=== PATIENT | female | born 1970 | race Two or more races ===

== ENCOUNTER 2017-07-12 18:30 | Inpatient (IN) | payer MEDICAID ==
[~2017-07-12] VITALS: Ht 167.6 cm; Wt 65.8 kg
--- NOTE | 2017-07-12 19:25 | NUR ---
TO BED 8 A 46 YO FEMALE BIBSELF AND REPORTS OF "FEVER X3 DAYS; TODAY I STARTED HAVING ABD CRAMPING AND NAUSEA." UPON ARRIVAL TO ER, PATIENT IS AAOX3, NO ACUTE DISTRESS NOTED. AFEBRILE. VSS. INITIATED COMFORT MEASURES. ONGOING VS MONITORING. AWAITING FOR ER MD GARCIA.
--- NOTE | 2017-07-12 19:27 | NUR ---
DR REDDY AT BEDSIDE TO EVAL.
[2017-07-12] MEDS ORDERED: ONDANSETRON HCL/PF 4 MG/2 ML VIAL IVP ONE (19:30)
[2017-07-12] MEDS ORDERED: IV NS 0.9% 1,000 ML BAG IV ONE ×2 (19:30→20:30)
[2017-07-12] MEDS ORDERED: MORPHINE SULFATE INJ 2 MG/ML DISP.SYRIN IV ONE (19:30)
--- NOTE | 2017-07-12 19:40 | NUR ---
STARTED A SALINE LOCK ON THE RIGHT AC G20, BLOOD DRAWN AND SENT TO LAB.
[2017-07-12] MEDS ORDERED: ONDANSETRON HCL/PF 4 MG/2 ML VIAL ONE (19:41)
[2017-07-12] MEDS ORDERED: MORPHINE SULFATE INJ 2 MG/ML DISP.SYRIN ONE (19:41)
[2017-07-12 19:42] LABS: BASOPHILS # (AUTO) 0.3 /CMM (0.0-0.2); BASOPHILS % (AUTO) 1.2 % (0.0-2.0); EOSINOPHILS % (AUTO) 0.1 % (0.0-6.0); HEMATOCRIT 41 % (33-45); HEMOGLOBIN 14.1 g/dL (11.5-14.8); LYMPHOCYTES # (AUTO) 1.4 /CMM (0.8-4.8); LYMPHOCYTES % (AUTO) 5.9 % (20.0-44.0); MEAN CORPUSCULAR HEMOGLOBIN 30 PG (26.0-33.0); MEAN CORPUSCULAR HGB CONC 35 g/dl (31.0-36.0); MEAN CORPUSCULAR VOLUME 87 fL (82-100); MONOCYTES # (AUTO) 1.9 /CMM (0.1-1.30); MONOCYTES % (AUTO) 7.7 % (2.0-12.0); NEUTROPHILS # (AUTO) 20.8 /CMM (1.8-8.9); NEUTROPHILS % (AUTO) 85.1 % (43.0-81.0); PLATELET COUNT (AUTO) 242 /CMM (150-450); RDW COEFFICIENT OF VARIATION 12.4 (11.5-15.0); RED BLOOD CELL COUNT(AUTO) 4.68 MIL/uL (4.0-5.2); WHITE BLOOD COUNT (AUTO) 24.4 K/uL (4.3-11.0)
[2017-07-12 19:46] LABS: APPEARANCE,URINE Slightly Cloudy (CLEAR); BILIRUBIN,URINE SMALL (NEGATIVE); BLOOD, URINE Moderate Ery/uL (NEGATIVE); COLOR,URINE Dark (YELLOW); KETONES,URINE >=160 (NEGATIVE); LEUKOCYTE ESTERASE ,URINE Negative (NEGATIVE); NITRITE, URINE Negative (NEGATIVE); PH,URINE 5.5 (5.0-8.0); PROTEIN,URINE 100 mg/dl (NEGATIVE); UGLUCOSE Negative (NEGATIVE); UROBILINOGEN,URINE 0.2 EU/dL (0.2)
--- NOTE | 2017-07-12 19:48 | NUR ---
MEDICATED PATIENT ORDERED BY DR REDDY.
[2017-07-12 19:49] LABS: PREGNANCY TEST URINE QUAL NEGATIVE (NEGATIVE)
[2017-07-12 20:02] LABS: CALCIUM, SERUM 9.2 mg/dL (8.5-10.1); CREATININE 0.6 mg/dL (0.6-1.3); POTASSIUM 3.6 mmol/L (3.5-5.1); RBC,URINE 21-50 /HPF (0-2)
[2017-07-12 20:03] LABS: BACTERIA,URINE Few /HPF (None Seen); SQUAMOUS EPITHELIAL CELL,UR Few /HPF (None Seen)
[2017-07-12 20:08] LABS: ALBUMIN 2.9 g/dL (3.4-5.0); BILIRUBIN,DIRECT 0.2 mg/dL (0.0-0.2); TOTAL PROTEIN, SERUM 7.7 g/dL (6.4-8.2)
[2017-07-12 20:29] LABS: LYMPHOCYTES % (MANUAL) 14 % (16-48); MONOCYTES % (MANUAL) 6 % (0-11.0); NEUTROPHILS % (MANUAL) 80 (42-76)
[2017-07-12] MEDS ORDERED: PIPERACILLIN /TAZOBACTAM 3.375 G in IV D5W 50 ML IV ONE (21:30)
--- NOTE | 2017-07-12 21:31 | NUR ---
PATIENT WILL BE ADMITTED INTO [facility].
[2017-07-12] MEDS ORDERED: PIPERACILLIN /TAZOBACTAM 3.375 G VIAL IV ONE (21:36)
--- NOTE | 2017-07-12 21:50 | NUR ---
Report given to Kristy GUERIN for medsurg admission and dina.
[2017-07-12 22:00] VITALS: BP 116/72
[2017-07-12] MEDS ORDERED: ACETAMINOPHEN 325 MG TABLET PO PRN (22:00)
[2017-07-12] MEDS ORDERED: MAGNESIUM HYDROXIDE 30 ML UDC PO PRN (22:00)
[2017-07-12] MEDS ORDERED: MAG HYDROX/AL HYDROX/SIMETH 30 ML UDC PO PRN (22:00)
[2017-07-12] MEDS ORDERED: Z GUARD REMEDY 2 OZ OINT TP PRN (22:00)
--- NOTE | 2017-07-12 22:00 | NUR ---
Transferred to [facility] floor for admission and dina.
[2017-07-12] MEDS ORDERED: HYDROCODONE/APAP 10/325MG 1 EA TABLET ONE (22:33)
[2017-07-12] MEDS: HYDROCODONE/APAP 10/325MG 1 EA TABLET PO PRN (22:34)
--- NOTE | 2017-07-12 22:35 | NUR ---
RN NOTE; ADMITTED A 46Y/O, F, A, OX4. BREATHING EVENLY. NO SOB. [facility] . SKIN WARM AND DRY. VITAL SIGNS OBTAINED ALL WNL. AFEBRILE. W/ C/O LOWER ABD PAIN. NORCO 10 GIVEN ORDERED. IV SITE CLEAN AND PATENT. NO SKIN BREAK DOWN NOTED. NEEDS ATTENDED. CALL LIGHT GIVEN TO THE PT. BED LOW LOCKED. WILL CONT TO MONITOR AND WILL F/U W/ MD'S ORDER.
[2017-07-12] MEDS: IV NS 0.9% 1,000 ML IV PRN (22:38)
--- NOTE | 2017-07-13 00:04 | NUR ---
HELD MIDNIGHT DOSE OF ZOSYN SINCE PT HAS RECEIVED HER LAST DOSE OF ZOSYN AROUND 2144 AT THE ER.
[2017-07-13] MEDS ORDERED: TEMAZEPAM 15 MG CAPSULE ONE (01:37)
[2017-07-13] MEDS: TEMAZEPAM 15 MG CAPSULE PO PRN (01:38)
--- NOTE | 2017-07-13 01:40 | NUR ---
RESTORIL 15MG GIVEN ORDERED PER PT'S REQUEST FOR C/O INSOMNIA. WILL CONT TO MONITOR
[2017-07-13] MEDS ORDERED: PIPERACILLIN /TAZOBACTAM 3.375 G VIAL IV ONE (05:03)
[2017-07-13] MEDS ORDERED: ONDANSETRON HCL/PF 4 MG/2 ML VIAL ONE (05:34)
[2017-07-13] MEDS: PIPERACILLIN /TAZOBACTAM 3.375 G in IV D5W 50 ML IV SCH ×5 (05:36→17:17)
[2017-07-13] MEDS: ONDANSETRON HCL/PF 4 MG/2 ML VIAL IVP PRN ×3 (05:37→19:22)
--- NOTE | 2017-07-13 05:37 | NUR ---
ZOFRAN GIVEN ORDERED FOR C/O NAUSEA WILL CONT TO MONITOR
[2017-07-13] MEDS: IV NS 0.9% 1,000 ML IV PRN (05:40)
[2017-07-13] MEDS ORDERED: HYDROCODONE/APAP 10/325MG 1 EA TABLET ONE (05:57)
[2017-07-13] MEDS: HYDROCODONE/APAP 10/325MG 1 EA TABLET PO PRN ×2 (05:59→13:05)
--- NOTE | 2017-07-13 06:00 | NUR ---
NORCO 10 GIVEN ORDERED FOR C/O SEVERE LOWER ABD PAIN . WILL CONT TO MONITOR
--- NOTE | 2017-07-13 06:37 | NUR ---
PT IN BED AWAKE AND ALERT. BREATHING EVENLY. NO ACUTE EVENT DURING THE NIGHT. MEDICATED ORDERED. ON ONGOING IVF HYDRATION AND IV ABX. PAIN MEDICATION GIVEN ORDERED PER PT'S REQUEST EFFECTIVE. NEEDS ATTENDED . CALL LIGHT WITHIN REACH. WILL CONT TO MONITOR AND WILL ENDORSE TO AM SHIFT FOR TOBIAS.
[2017-07-13 07:32] LABS: BASOPHILS % (AUTO) 0.1 % (0.0-2.0); EOSINOPHILS % (AUTO) 0.1 % (0.0-6.0); HEMATOCRIT 35 % (33-45); LYMPHOCYTES # (AUTO) 1.8 /CMM (0.8-4.8); MEAN CORPUSCULAR HEMOGLOBIN 30 PG (26.0-33.0); MEAN CORPUSCULAR HGB CONC 35 g/dl (31.0-36.0); MEAN CORPUSCULAR VOLUME 87 fL (82-100); MONOCYTES # (AUTO) 0.7 /CMM (0.1-1.30); MONOCYTES % (AUTO) 3.6 % (2.0-12.0); NEUTROPHILS # (AUTO) 17.4 /CMM (1.8-8.9); NEUTROPHILS % (AUTO) 87.2 % (43.0-81.0); PLATELET COUNT (AUTO) 207 /CMM (150-450); RDW COEFFICIENT OF VARIATION 13.7 (11.5-15.0); RED BLOOD CELL COUNT(AUTO) 3.94 MIL/uL (4.0-5.2); WHITE BLOOD COUNT (AUTO) 19.9 K/uL (4.3-11.0)
--- NOTE | 2017-07-13 07:37 | NUR ---
RN NOTES RECEIVED PATIENT IN BED, AWAKE, HOB ELEVATED, NO SOB OR DISTRESS NOTED. A/O X 4, VERBALLY RESPONSIVE AND ABLE TO MAKE NEEDS KNOWN. IV INTACT AND PATENT. KEPT PATIENT CLEAN AND COMFORTABLE IN BED, CALL LIGHT WITHIN PATIENT REACH, WILL CONTINUE TO MONITOR ACCORDINGLY.
[2017-07-13 07:40] LABS: CALCIUM, SERUM 7.9 mg/dL (8.5-10.1); CARBON DIOXIDE 24 mmol/L (21-32); CHLORIDE 103 mmol/L (98-107); CREATININE 0.6 mg/dL (0.6-1.3); GLUCOSE 96 mg/dL (74-106); MAGNESIUM 1.6 mg/dL (1.8-2.4); PHOSPHORUS 2.7 mg/dL (2.5-4.9); POTASSIUM 3.1 mmol/L (3.5-5.1); SODIUM SERUM 137 mmol/L (136-145); UREA NITROGEN, BLOOD 7 mg/dL (7-18)
[2017-07-13 07:50] LABS: CHOLESTEROL 103 mg/dL (<200); LDL 52 mg/dL (0-99); TRIGLYCERIDES 125 mg/dL (30-150)
[2017-07-13 08:00] VITALS: BP 93/56
[2017-07-13] MEDS ORDERED: ACET325T53 PO (08:11)
[2017-07-13] MEDS: PANTOPRAZOLE 40 MG TABLET.DR PO SCH (08:28)
[2017-07-13 09:06] LABS: HDL CHOLESTEROL < 10 mg/dL (40-60)
[2017-07-13] MEDS: POTASSIUM CHLORIDE 20 MEQ TAB.PRT.SR PO SCH ×2 (11:22→13:05)
[2017-07-13] MEDS: Magnesium 1GM/D5W 100ML PREMIX 100 ML IV SCH ×2 (13:04→14:24)
--- NOTE | 2017-07-13 13:05 | NUR ---
RN NOTES PT REPORTED NAUSEA AND PAIN 07/07. NORCO 10/325 AND ZOFRAN GIVEN.
[2017-07-13] MEDS ORDERED: POTASSIUM CHLORIDE 20 MEQ TAB.PRT.SR PO ONE (14:00)
[2017-07-13] MEDS ORDERED: Magnesium 1GM/D5W 100ML PREMIX 100 ML IV SCH (14:00)
[2017-07-13 16:00] VITALS: BP 101/56
--- NOTE | 2017-07-13 18:31 | NUR ---
RN NOTES ALL NEEDS PROVIDED, ATTENDED, AND ANTICIPATED. KEPT PATIENT CLEAN AND COMFORTABLE IN BED, CALL LIGHT WITHIN PATIENT REACH, WILL CONTINUE TO MONITOR ACCORDINGLY. ENDORSED TO NEXT SHIFT RN TO CONTINUE CARE.
[2017-07-13] MEDS: HYDROCODONE/APAP 5/325MG 1 EACH TABLET PO PRN (19:22)
--- NOTE | 2017-07-13 19:30 | NUR ---
RN NOTES RECEIVED PATIENT IN BED, AWAKE, A/O X 4, VERBALLY RESPONSIVE AND ABLE TO MAKE NEEDS KNOWN. NO SOB OR DISTRESS NOTED. IV SITE ON RAC INTACT AND PATENT. NO S/S OF INFILTRATION NOTED. IVF INFUSING WELL. NO C/O PAIN OR DISCOMFORT AT THIS TIME. KEPT PATIENT COMFORTABLE IN BED, CALL LIGHT WITHIN PATIENT REACH, SAFETY PRECAUTIONS OBSERVED. WILL CONTINUE TO MONITOR ACCORDINGLY.
[2017-07-13 20:00] VITALS: BP_SYST 113; BP_SYST 116; BP_DIAS 61; BP_DIAS 71
[2017-07-13 23:28] VITALS: BP 113/61
[2017-07-14] MEDS: PIPERACILLIN /TAZOBACTAM 3.375 G in IV D5W 50 ML IV SCH ×4 (00:15→18:17)
[2017-07-14] MEDS: IV NS 0.9% 1,000 ML IV PRN ×2 (00:24→14:34)
[2017-07-14] MEDS: ONDANSETRON HCL/PF 4 MG/2 ML VIAL IVP PRN (03:33)
[2017-07-14] MEDS: HYDROCODONE/APAP 5/325MG 1 EACH TABLET PO PRN ×4 (03:43→20:30)
[2017-07-14 04:00] VITALS: BP 112/75
[2017-07-14 06:59] LABS: BASOPHILS % (AUTO) 0.2 % (0.0-2.0); EOSINOPHILS # (AUTO) 0.1 /CMM (0.0-0.7); EOSINOPHILS % (AUTO) 0.5 % (0.0-6.0); HEMATOCRIT 35 % (33-45); HEMOGLOBIN 11.8 g/dL (11.5-14.8); LYMPHOCYTES # (AUTO) 2.1 /CMM (0.8-4.8); MEAN CORPUSCULAR HEMOGLOBIN 30 PG (26.0-33.0); MEAN CORPUSCULAR HGB CONC 34 g/dl (31.0-36.0); MEAN CORPUSCULAR VOLUME 88 fL (82-100); MONOCYTES % (AUTO) 7.4 % (2.0-12.0); NEUTROPHILS % (AUTO) 75.9 % (43.0-81.0); PLATELET COUNT (AUTO) 214 /CMM (150-450); RDW COEFFICIENT OF VARIATION 13.6 (11.5-15.0); WHITE BLOOD COUNT (AUTO) 13.2 K/uL (4.3-11.0)
--- NOTE | 2017-07-14 07:00 | NUR ---
RN NOTES ALL NEEDS ATTENDED AND MET.
--- NOTE | 2017-07-14 07:06 | NUR ---
RN NOTES PATIENT IN BED, AWAKE, A/O X 4, VERBALLY RESPONSIVE AND ABLE TO MAKE NEEDS KNOWN. RESTING COMFORTABLY AT THIS TIME. NO SOB OR DISTRESS NOTED. IV SITE ON RAC INTACT AND PATENT. NO S/S OF INFILTRATION NOTED. IVF INFUSING WELL. NO C/O PAIN OR DISCOMFORT AT THIS TIME. KEPT PATIENT COMFORTABLE IN BED, CALL LIGHT WITHIN PATIENT REACH, SAFETY PRECAUTIONS OBSERVED. WILL ENDORSE TO NEXT SHIFT ACCORDINGLY.
[2017-07-14 08:00] VITALS: BP 119/73
--- NOTE | 2017-07-14 08:00 | NUR ---
AM RN NOTES RECEIVED PT IN STABLE CONDITION, RESTING IN BED, NO N/V NOTED, NO PAIN AT THIS TIME, PROVIDED WITH BREAKFAST WILL MONITOR.
[2017-07-14] MEDS: PANTOPRAZOLE 40 MG TABLET.DR PO SCH (08:11)
[2017-07-14 08:30] LABS: MAGNESIUM 1.9 mg/dL (1.8-2.4); PHOSPHORUS 3.3 mg/dL (2.5-4.9)
[2017-07-14] MEDS ORDERED: MAG HYDROX/AL HYDROX/SIMETH 30 ML UDC PO PRN (12:00)
[2017-07-14] MEDS ORDERED: SUMATRIPTAN SUCCINATE 25 MG TABLET PO ONE (12:00)
[2017-07-14] MEDS ORDERED: POTASSIUM CHLORIDE 20 MEQ TAB.PRT.SR PO ONE (12:27)
--- NOTE | 2017-07-14 12:57 | NUR ---
RN NOTES PER DR. KRAMER, OKAY TO ADMINISTER POTASSIUM 40 MEQ WITHOUT LABS TODAY DUE TO PREVIOUS LOW POTASSIUM LEVEL. PT. HAS BMP ORDERED TOMORROW ON0 07/15/17.
[2017-07-14 16:00] VITALS: BP 119/73
[2017-07-14 16:16] VITALS: BP 135/76
--- NOTE | 2017-07-14 18:59 | NUR ---
PT IN STABLE CONDITION, NO N/V NOTED, PAIN WELL CONTROLLED WITH MEDICATION, WILL INDORSE TO NEXT SHIFT FOR TOBIAS.
[2017-07-14 20:00] VITALS: BP 115/60
[2017-07-14] MEDS: TEMAZEPAM 15 MG CAPSULE PO PRN (20:29)
[2017-07-15] MEDS: PIPERACILLIN /TAZOBACTAM 3.375 G in IV D5W 50 ML IV SCH ×3 (00:01→12:04)
[2017-07-15] MEDS: IV NS 0.9% 1,000 ML IV PRN (00:05)
[2017-07-15 04:00] VITALS: BP 139/83
[2017-07-15] MEDS: ONDANSETRON HCL/PF 4 MG/2 ML VIAL IVP PRN (05:26)
[2017-07-15] MEDS: HYDROCODONE/APAP 5/325MG 1 EACH TABLET PO PRN (05:27)
[2017-07-15 07:12] LABS: BASOPHILS % (AUTO) 0.3 % (0.0-2.0); EOSINOPHILS # (AUTO) 0.1 /CMM (0.0-0.7); EOSINOPHILS % (AUTO) 0.5 % (0.0-6.0); HEMATOCRIT 34 % (33-45); HEMOGLOBIN 11.5 g/dL (11.5-14.8); LYMPHOCYTES % (AUTO) 16.7 % (20.0-44.0); MEAN CORPUSCULAR HEMOGLOBIN 30 PG (26.0-33.0); MEAN CORPUSCULAR HGB CONC 34 g/dl (31.0-36.0); MEAN CORPUSCULAR VOLUME 88 fL (82-100); MONOCYTES # (AUTO) 0.7 /CMM (0.1-1.30); MONOCYTES % (AUTO) 6.1 % (2.0-12.0); NEUTROPHILS # (AUTO) 9.1 /CMM (1.8-8.9); NEUTROPHILS % (AUTO) 76.4 % (43.0-81.0); PLATELET COUNT (AUTO) 220 /CMM (150-450); RDW COEFFICIENT OF VARIATION 13.3 (11.5-15.0); RED BLOOD CELL COUNT(AUTO) 3.84 MIL/uL (4.0-5.2); WHITE BLOOD COUNT (AUTO) 11.9 K/uL (4.3-11.0)
--- NOTE | 2017-07-15 07:30 | NUR ---
MS RN NOTE: RECEIVED PT AWAKE IN BED, A&OX4. ON RA, RESPIRATIONS EVEN AND UNLABORED WITH NO SOB NOTED. DENIES PAIN. NO SOB OR DISTRESS NOTED. IV SITE ON LH INTACT AND PATENT WITH NS RUNNING AT 100CC/HR. BED LOW, LOCKED WITH CALL LIGHT WITHIN REACH. ALL NEEDS MET AN ANTICIPATED. WILL CONT TO MONITOR.
[2017-07-15 07:47] LABS: CALCIUM, SERUM 8.2 mg/dL (8.5-10.1); CREATININE 0.6 mg/dL (0.6-1.3); POTASSIUM 3.6 mmol/L (3.5-5.1)
[2017-07-15] MEDS: PANTOPRAZOLE 40 MG TABLET.DR PO SCH (07:58)
[2017-07-15 08:00] VITALS: BP_SYST 105; BP_SYST 108; BP_DIAS 61
[2017-07-15 08:37] LABS: MAGNESIUM 1.8 mg/dL (1.8-2.4); PHOSPHORUS 3.5 mg/dL (2.5-4.9)
[2017-07-15] MEDS ORDERED: SULF1TAB48 PO (11:44)
[2017-07-15] MEDS ORDERED: SUMA20SP NS (11:44)
--- NOTE | 2017-07-15 13:45 | NUR ---
MS RN NOTE: PATIENT D/C BACK HOME TODAY IN STABLE CONDITION. VS: 97/8 TEMP, 84 HR, 20 RR, 97%O2 SAT, 105/61 BP. FOLLOW UP CARE INSTRUCTIONS AND S/S OF WHEN TO SEEK MEDICAL ATTENTION REVIEWED WITH PATIENT. BELONGINGS LIST AND D/C FORMS SIGNED. PATIENT LEFT THE UNIT AMBULATORY ACCOMPANIED BY HER SON AT 1345.
[2017-07-16] MEDS ORDERED: OMEP40CA37 PO (01:18)
== END 2017-07-15 14:08 | disposition home or self-care (01) | DRG 720 ==
LOC: ER 18:32 → MEDSG1 22:28
PROVIDERS: ADMIT Nurse Practitioner Acute Care; ATTEND Nurse Practitioner Acute Care
DX: A41.9 Sepsis, unspecified organism (principal); N10 Acute pyelonephritis; B96.89 Other specified bacterial agents as the cause of diseases classified elsewhere; K21.9 Gastro-esophageal reflux disease without esophagitis; G43.909 Migraine, unspecified, not intractable, without status migrainosus
CPT/HCPCS: 36415; 71010-TC; 71250-TC; 76705-TC; 80048-TC; 80061-TC; 80076-TC; 81000-TC; 83605-TC; 83690-TC; 83735-TC; 84100-TC; 84703-TC; 85025-TC; 87040-TC; 87081-TC; 87086-TC; A4606; A6402; J2270; J2405; J2543; J3475; J7030; J7060; Z7610

== ENCOUNTER 2019-05-04 21:29 | Emergency (ER) | payer MEDICAID ==
[~2019-05-04] VITALS: Ht 167.6 cm; Wt 65.8 kg
[~2019-05-04 21:29] MED LIST: ACET325T53 PO; OMEP40CA37 PO; SULF1TAB48 PO; SUMA20SP NS
--- NOTE | 2019-05-04 21:35 | NUR ---
BIB FAMILY C/C OF LT FLANK PAIN X 2 HOURS. PT ALSO COMPLAINING OF DIZZINESS, NAUSEA, WITH NO CURRENT VOMITING. SKIN PINK, WARM, DRY. MOVES ALL EXTREMITIES WELL. AMBULATED TO BED WITH STABLE GAIT. NO S/S SOB. NAD. VSS. WILL CONTINUE TO MONITOR.
[2019-05-04] MEDS ORDERED: MORPHINE SULFATE INJ 2 MG/ML DISP.SYRIN IV ONE (22:00)
[2019-05-04] MEDS ORDERED: ONDANSETRON HCL/PF 4 MG/2 ML VIAL IVP ONE (22:00)
[2019-05-04] MEDS ORDERED: IV NS 0.9% 1,000 ML BAG IV ONE (22:00)
[2019-05-04] MEDS ORDERED: MORPHINE SULFATE INJ 4 MG/ML DISP.SYRIN ONE (22:05)
[2019-05-04] MEDS ORDERED: ONDANSETRON HCL/PF 4 MG/2 ML VIAL ONE (22:05)
[2019-05-04 22:08] LABS: BASOPHILS % (AUTO) 0.2 % (0.0-2.0); EOSINOPHILS % (AUTO) 0.1 % (0.0-6.0); HEMATOCRIT 41 % (33-45); HEMOGLOBIN 14.1 g/dL (11.5-14.8); LYMPHOCYTES # (AUTO) 1.5 /CMM (0.8-4.8); LYMPHOCYTES % (AUTO) 7.7 % (20.0-44.0); MEAN CORPUSCULAR HGB CONC 35 g/dl (31.0-36.0); MEAN CORPUSCULAR VOLUME 88 fL (82-100); MONOCYTES # (AUTO) 0.8 /CMM (0.1-1.30); MONOCYTES % (AUTO) 4.4 % (2.0-12.0); NEUTROPHILS # (AUTO) 16.7 /CMM (1.8-8.9); NEUTROPHILS % (AUTO) 87.6 % (43.0-81.0); PLATELET COUNT (AUTO) 246 /CMM (150-450); RED BLOOD CELL COUNT(AUTO) 4.64 MIL/uL (4.0-5.2)
[2019-05-04 22:18] LABS: CALCIUM, SERUM 9.2 mg/dL (8.5-10.1); CREATININE 0.7 mg/dL (0.6-1.3); POTASSIUM 3.2 mmol/L (3.5-5.1)
--- NOTE | 2019-05-04 22:20 | NUR ---
RESTING COMFORTABLY WITH FAMILY AT BEDSIDE. EASILY AROUSED. WHEN AROUSED. AA/OX4. NAD.
[2019-05-04 22:24] LABS: ALBUMIN 3.6 g/dL (3.4-5.0); BILIRUBIN,DIRECT 0.1 mg/dL (0.0-0.2); BILIRUBIN,TOTAL 0.5 mg/dL (0.2-1.0)
[2019-05-04 22:45] LABS: APPEARANCE,URINE Clear (CLEAR); BILIRUBIN,URINE SMALL (NEGATIVE); BLOOD, URINE Small Ery/uL (NEGATIVE); COLOR,URINE Yellow (YELLOW); KETONES,URINE >=160 (NEGATIVE); LEUKOCYTE ESTERASE ,URINE Negative (NEGATIVE); NITRITE, URINE Negative (NEGATIVE); PH,URINE 5.5 (5.0-8.0); PROTEIN,URINE Negative (NEGATIVE); UGLUCOSE Negative (NEGATIVE); UROBILINOGEN,URINE 0.2 EU/dL (0.2)
[2019-05-04 23:23] LABS: SQUAMOUS EPITHELIAL CELL,UR Few /HPF (None Seen)
[2019-05-04 23:25] LABS: BACTERIA,URINE Rare /HPF (None Seen)
--- NOTE | 2019-05-04 23:36 | NUR ---
PT CONTINUES TO REST COMFORTABLY WITH FAMILY AT BEDSIDE. EASILY AROUSED
--- NOTE | 2019-05-05 00:09 | NUR ---
X RAY AT BEDSIDE
[2019-05-05] MEDS ORDERED: CEFTRIAXONE 1 G VIAL ONE (01:15)
[2019-05-05] MEDS ORDERED: CEFTRIAXONE 1GM BAG (ER ONLY) 1 GM/50 ML PIGGYBACK IV ONE (01:30)
[2019-05-05 01:50] VITALS: BP 128/72
--- NOTE | 2019-05-05 01:50 | NUR ---
Patient discharged to home in stable condition. Written and verbal after care instructions given. Patient verbalizes understanding of instruction.IV removed. Catheter intact and site benign. Pressure and 4x4 applied to site. No bleeding noted. AMBULATED WITH STABLE GAIT. ADVISED NOT TO OPERATE OR DRIVE HEAVY MACHINERY. NAD. VSS.
== END 2019-05-05 01:50 | disposition home or self-care (01) ==
LOC: ER 21:35
DX: R10.32 Left lower quadrant pain (principal); Z87.440 Personal history of urinary (tract) infections; Z79.899 Other long term (current) drug therapy
CPT/HCPCS: 36415; 71045; 74176; 80048; 80076; 81001; 83605; 83690; 84703; 85025; 87040 ×2; 87086; 96361; 96365; 96375; 99284; J0696; J2270; J2405; J7030; J7060; 81000-TC

== ENCOUNTER 2021-11-24 21:46 | Emergency (ER) | payer MEDICAID, OTHER ==
[~2021-11-24] VITALS: Ht 167.6 cm; Wt 68.0 kg
[~2021-11-24 21:46] MED LIST changes: +OMEP40CA21 PO; -OMEP40CA37 PO
[2021-11-24] MEDS ORDERED: HYDR-4303 PO (22:53)
[2021-11-24] MEDS ORDERED: IBUP-1955 PO (22:53)
--- NOTE | 2021-11-24 23:02 | NUR ---
pt bib c/o of right shoulder pain after walking the dog earlier this evening. per pt, she heard a clicking noise in her shoulder when the dog pulled and has been experiencing pain since. pain stops when not moving arm, per pt. pt in bed 1, placed on monitor.
[2021-11-24] MEDS ORDERED: HYDROCODONE/APAP 5/325MG TABLET ONE (23:04)
[2021-11-24] MEDS ORDERED: HYDROCODONE/APAP 5/325MG TABLET PO ONE (23:30)
[2021-11-25] VITALS: BP 115/79
--- NOTE | 2021-11-25 | NUR ---
Patient discharged to home in stable condition. Written and verbal after care instructions given. Patient verbalizes understanding of instruction. Pt ambulatory with a steady gait
== END 2021-11-25 00:01 | disposition home or self-care (01) ==
LOC: ER 21:52
DX: M25.511 Pain in right shoulder (principal); Z79.899 Other long term (current) drug therapy; X50.1XXA Overexertion from prolonged static or awkward postures, initial encounter; Y93.K1 Activity, walking an animal; Y92.89 Other specified places as the place of occurrence of the external cause; Y99.8 Other external cause status
CPT/HCPCS: 73030-TC